=== PATIENT | male | born 1990 | race Caucasian/White ===

== ENCOUNTER 2016-11-30 20:46 | Inpatient (IN) | payer OTHER ==
[~2016-11-30] VITALS: Ht 177.8 cm; Wt 50.0 kg
[2016-11-30 22:05] LABS: HEMOGLOBIN 13.8 gm/dl (14.0-17.5); RED BLOOD COUNT 4.75 M/UL (4.20-5.50); WHITE BLOOD COUNT 10.9 K/UL (4.5-11.0)
[2016-11-30 22:19] LABS: BUN/CREATININE RATIO 15 (0-10)
[2016-12-01] MEDS ORDERED: NORCO 10-325 T1 EACH PO (03:11)
[2016-12-01 05:26] LABS: WHITE BLOOD COUNT 9.1 K/UL (4.5-11.0)
[2016-12-01 05:27] LABS: HEMOGLOBIN 11.5 gm/dl (14.0-17.5); RED BLOOD COUNT 4.07 M/UL (4.20-5.50)
[2016-12-01 05:43] LABS: BUN/CREATININE RATIO 16 (0-10)
[2016-12-02 04:59] LABS: RED BLOOD COUNT 3.87 M/UL (4.20-5.50); WHITE BLOOD COUNT 6.2 K/UL (4.5-11.0)
[2016-12-02 05:17] LABS: BUN/CREATININE RATIO 18 (0-10)
== END 2016-12-02 17:35 | disposition home or self-care (01) | DRG 390 ==
LOC: ER1 20:46 → MED SURG 4 23:45 → ZEROF 23:45 → MED SURG 4 12-01 01:50
PROVIDERS: Emergency Medicine; Internal Medicine; ADMIT Internal Medicine
DX: K56.60 Unspecified intestinal obstruction (principal); F17.210 Nicotine dependence, cigarettes, uncomplicated; Z88.6 Allergy status to analgesic agent; Z88.0 Allergy status to penicillin; Z88.8 Allergy status to other drugs, medicaments and biological substances; Z87.828 Personal history of other (healed) physical injury and trauma; Z91.81 History of falling; Z80.3 Family history of malignant neoplasm of breast; Z80.8 Family history of malignant neoplasm of other organs or systems; R10.32 Left lower quadrant pain; R00.0 Tachycardia, unspecified
CPT/HCPCS: 36415; 74000; 80048; 80053; 83605; 83690; 83735; 85025; 85027; 96361; 96374; 96375; 96376; 99285; J1650; J2270; J2405; J3480; J7030; J7050; Q9962

== ENCOUNTER 2016-12-07 23:23 | Inpatient (IN) | payer OTHER ==
[~2016-12-07] VITALS: Ht 180.3 cm; Wt 54.4 kg
[~2016-12-07 23:23] MED LIST: NORCO 10-325 T1 EACH PO
[2016-12-08 00:41] LABS: HEMOGLOBIN 12.7 gm/dl (14.0-17.5); RED BLOOD COUNT 4.47 M/UL (4.20-5.50); WHITE BLOOD COUNT 7.8 K/UL (4.5-11.0)
[2016-12-08 00:55] LABS: BUN/CREATININE RATIO 15 (0-10)
[2016-12-08] MEDS ORDERED: SUMATRIPTAN SU100 MG PO (09:28)
[2016-12-08] MEDS ORDERED: NORTRIPTYLINE H10 MG PO (09:29)
[2016-12-08] MEDS ORDERED: PHENERGAN 25 MG25 M1 PO (09:31)
[2016-12-09 05:58] LABS: HEMOGLOBIN 12.5 gm/dl (14.0-17.5); RED BLOOD COUNT 4.39 M/UL (4.20-5.50)
[2016-12-09 06:02] LABS: WHITE BLOOD COUNT 18.3 K/UL (4.5-11.0)
[2016-12-09 06:16] LABS: BUN/CREATININE RATIO 14 (0-10)
[2016-12-10 05:01] LABS: HEMOGLOBIN 11.6 gm/dl (14.0-17.5); RED BLOOD COUNT 4.14 M/UL (4.20-5.50); WHITE BLOOD COUNT 15.8 K/UL (4.5-11.0)
[2016-12-10 05:17] LABS: BUN/CREATININE RATIO 14 (0-10)
[2016-12-11 06:02] LABS: HEMOGLOBIN 10.8 gm/dl (14.0-17.5); RED BLOOD COUNT 3.87 M/UL (4.20-5.50)
[2016-12-11 06:05] LABS: WHITE BLOOD COUNT 10.8 K/UL (4.5-11.0)
[2016-12-11 06:17] LABS: BUN/CREATININE RATIO 13 (0-10)
[2016-12-12 06:48] LABS: BUN/CREATININE RATIO 8 (0-10)
[2016-12-14 04:06] LABS: HEMOGLOBIN 11.3 gm/dl (14.0-17.5); RED BLOOD COUNT 4.05 M/UL (4.20-5.50); WHITE BLOOD COUNT 9.1 K/UL (4.5-11.0)
[2016-12-14 04:27] LABS: BUN/CREATININE RATIO 8 (0-10)
== END 2016-12-14 18:29 | disposition home or self-care (01) | DRG 388 ==
LOC: ER1 23:23 → ZEROF 12-08 02:40 → MED SURG 4 12-08 15:48
PROVIDERS: Emergency Medicine; Hospitalist; Internal Medicine; Physician Assistant; ADMIT Internal Medicine
DX: K56.60 Unspecified intestinal obstruction (principal); E43 Unspecified severe protein-calorie malnutrition; K50.90 Crohn's disease, unspecified, without complications; Z68.1 Body mass index [BMI] 19.9 or less, adult; K52.3 Indeterminate colitis; Z79.899 Other long term (current) drug therapy; Z88.0 Allergy status to penicillin; Z88.8 Allergy status to other drugs, medicaments and biological substances; F17.210 Nicotine dependence, cigarettes, uncomplicated
CPT/HCPCS: 36415; 71010; 74000; 74250; 80048; 80053; 81001; 83605; 83690; 85025; 85027; 86140; 87040; 96374; 96375; 96376; 99285; C9113; J2270; J2405; J7030; J7050; Q9962

== ENCOUNTER 2016-12-14 23:09 | Inpatient (IN) | payer OTHER ==
[~2016-12-14] VITALS: Ht 180.3 cm; Wt 54.4 kg
[~2016-12-14 23:09] MED LIST changes: +NORTRIPTYLINE H10 MG PO; +PHENERGAN 25 MG25 M1 PO; +SUMATRIPTAN SU100 MG PO
[2016-12-15 02:02] LABS: HEMOGLOBIN 10.8 gm/dl (14.0-17.5); RED BLOOD COUNT 3.84 M/UL (4.20-5.50)
[2016-12-15 02:03] LABS: WHITE BLOOD COUNT 13.1 K/UL (4.5-11.0)
[2016-12-15 02:18] LABS: BUN/CREATININE RATIO 15 (0-10)
[2016-12-16 06:02] LABS: HEMOGLOBIN 10.6 gm/dl (14.0-17.5); RED BLOOD COUNT 3.84 M/UL (4.20-5.50); WHITE BLOOD COUNT 15.3 K/UL (4.5-11.0)
[2016-12-16 06:26] LABS: BUN/CREATININE RATIO 23 (0-10)
[2016-12-19 06:07] LABS: HEMOGLOBIN 11.4 gm/dl (14.0-17.5); RED BLOOD COUNT 4.06 M/UL (4.20-5.50)
[2016-12-19 06:10] LABS: WHITE BLOOD COUNT 7.3 K/UL (4.5-11.0)
[2016-12-19 06:34] LABS: BUN/CREATININE RATIO 10 (0-10)
[2016-12-20 06:28] LABS: RED BLOOD COUNT 3.97 M/UL (4.20-5.50); WHITE BLOOD COUNT 8.5 K/UL (4.5-11.0)
[2016-12-20 06:48] LABS: BUN/CREATININE RATIO 8 (0-10)
[2016-12-21 06:31] LABS: HEMOGLOBIN 11.3 gm/dl (14.0-17.5); RED BLOOD COUNT 4.11 M/UL (4.20-5.50); WHITE BLOOD COUNT 7.3 K/UL (4.5-11.0)
[2016-12-21 06:43] LABS: BUN/CREATININE RATIO 5 (0-10)
--- NOTE | 2016-12-21 17:20 | NUR ---
I WAS ORDERED TO PULL THE [place] DRAIN PER 'S ORDERS THIS MORNING. THE PT WANTED ME TO WAIT UNTIL AFTER HE HAD PAIN MEDICINE. HE CONTINUED TO PUT ME OFF UNTIL THE AFTERNOON. I TOLD HIM THAT WE HAD TO PULL THE DRAIN AND PROCEEDED TO DO SO 15 MINUTES AFTER HIS IV DILAUDID. I HAD AN PATROL OFFICER WITH ME AND SHE CUT THE SUTURE AND TRIED TO PULL IT OUT BUT MET RESISTANCE. I TRIED TO PULL IT OUT AND WAS MET WITH RESISTANCE WELL. AT THIS POINT I STOPPED BECAUSE THE PATIENT WAS UPSET AND IN PAIN. I GAVE HIM SOME MORE DILAUDID IV TO EASE HIS PAIN AND BROUGHT MAY ROSALES TO THE ROOM WITH ME. THE PATIENT WAS RELUCTANT BUT EVENTUALLY LET US TRY TO PULL THE DRAIN AGAIN. HENRY OLVERA WAS UNABLE TO PULL THE DRAIN WELL. I CALLED AND HE STATED THAT HE WOULD COME PULL THE DRAIN THIS AFTERNOON.
[2016-12-22 06:30] LABS: HEMOGLOBIN 10.7 gm/dl (14.0-17.5); RED BLOOD COUNT 3.92 M/UL (4.20-5.50)
[2016-12-22 06:58] LABS: BUN/CREATININE RATIO 10 (0-10)
[2016-12-24] MEDS ORDERED: NORCO 7.5-3251 EACH PO (17:35)
== END 2016-12-24 17:50 | disposition home or self-care (01) | DRG 854 ==
LOC: ER1 23:09 → M/S 12-15 04:10 → ZEROF 12-15 04:10 → M/S 12-15 06:36
PROVIDERS: Emergency Medicine; Hospitalist; Internal Medicine; Surgery; ADMIT Internal Medicine
PROC: 0W9G30Z Drainage of Peritoneal Cavity with Drainage Device, Percutaneous Approach (ICD-10-PCS; 2016-12-15)
PROC: 0DBB0ZZ Excision of Ileum, Open Approach (ICD-10-PCS; principal; 2016-12-15 12:30)
DX: A41.9 Sepsis, unspecified organism (principal); K56.60 Unspecified intestinal obstruction; R18.8 Other ascites; K63.0 Abscess of intestine; E44.0 Moderate protein-calorie malnutrition; Z68.1 Body mass index [BMI] 19.9 or less, adult; Z53.31 Laparoscopic surgical procedure converted to open procedure; R33.9 Retention of urine, unspecified; R00.0 Tachycardia, unspecified; K66.0 Peritoneal adhesions (postprocedural) (postinfection); K63.89 Other specified diseases of intestine; F17.210 Nicotine dependence, cigarettes, uncomplicated; R21 Rash and other nonspecific skin eruption; G89.18 Other acute postprocedural pain; Z76.5 Malingerer [conscious simulation]; G89.29 Other chronic pain; Z79.899 Other long term (current) drug therapy; Z88.3 Allergy status to other anti-infective agents; Z88.0 Allergy status to penicillin; Z88.8 Allergy status to other drugs, medicaments and biological substances; Z98.890 Other specified postprocedural states
CPT/HCPCS: 36415; 71010; 80048; 80053; 80307; 81001; 82962; 83605; 83690; 85025; 85027; 87040; 87086; 93005; 96365; 96375; 97116; 97530; 99285; C9113; J1100; J1200; J1885; J1956; J2250; J2270; J2405; J2550; J2710; J3010; J7030; J7050; J7120